=== PATIENT | female | born 1955 | race Caucasian/White ===

== ENCOUNTER → 2017-03-12 | Outpatient (CLI) | payer BC ==
[~2017-03-12] MED LIST: AMOXICILLIN 50500 MG PO; AMOXICILLIN 8751 TAB PO; ANTIVERT 25MG25 MG PO; ATIVAN 0.50.5 MG/TAB PO; CALCITRIOL PO; CALCIUM CARBONATE PO; CARVEDILOL; CELLCEPT 5500 MG/TAB PO; EPA FISH OIL1000 MG PO; FLONASE NASAL S16 GM NS; LEVOTHROID0.075 MG PO; NEPROVITE PO; NIACIN; NORCO 325 MG-51 TAB PO; NORVASC5 MG PO; PHENERGAN 25 TA25 MG PO; PROGRAF 1MG1 MG; SYNTHROID0.075 MG/T PO; TAMIFLU 75MG75 MG PO; TUSS PO; TYLENOL 325MG325 MG PO; VANCOCIN H250 MG/CAP PO; VENTOLIN0.09 MG IH; VIT B COMPLEX; VITAMIN D; ZITHROMAX 250M250 MG PO; ZOFRAN 4MG T4 MG/TAB PO; [UNRECOGNIZED DRUG - OTHER]
== END ==
LOC: MC.RAD 03-11 15:00
DX: Z12.31 Encounter for screening mammogram for malignant neoplasm of breast (principal)

== ENCOUNTER 2017-11-27 16:35 | Emergency (ER) | payer BC, OTHER ==
[~2017-11-27] VITALS: Ht 165.1 cm; Wt 64.5 kg
[~2017-11-27 16:35] MED LIST changes: +FOSAMAX 70MG TA70 MG PO; +VALIUM 2MG T2 MG/TAB PO
[2017-11-27 16:42] VITALS: TEMP 97.7
[2017-11-27 17:22] LABS: BASO % 0.3 % (0.0-2.0); EOS # 0.1 (0.0-0.7); EOS % 0.7 % (0-4.0); GRAN # 4.7 (1.4-6.5); GRAN % 67.9 % (42.2-75.2); HEMATOCRIT 37.9 % (37.0-47.0); HEMOGLOBIN 12.9 g/dl (12.5-16.0); LYMPH # 1.4 (1.2-3.4); LYMPH % 20.3 % (20.0-51.0); MEAN CELL VOLUME 85 fl (80.0-100.0); MEAN CORPUSCULAR HEMOGLOBIN 29 pg (27.0-31.0); MEAN CORPUSCULAR HGB CONC 34 g/dl (33.0-37.0); MEAN PLATELET VOLUME 9.8 fl (7.4-10.4); MONO # 0.8 (0.1-0.6); MONO % 10.7 % (1.7-9.3); PLATELET COUNT 238 K/mm3 (130-400); RED BLOOD COUNT 4.45 M/mm3 (4.10-5.30); REDCELL DISTRIBUTION WIDTH-CV 12.9 % (11.5-14.5)
[2017-11-27 17:37] LABS: ALANINE AMINOTRANSFERASE 51 U/L (9-52); ALBUMIN 4.2 gm/dL (3.5-5.0); ALKALINE PHOSPHATASE 53 U/L (50-136); ANION GAP 14 mmol/L (7-16); AST,SGOT 44 U/L (15-37); BILIRUBIN,TOTAL 0.5 mg/dL (0.0-1.0); BLOOD UREA NITROGEN 11 mg/dL (7-17); CALCIUM 9.9 mg/dL (8.4-10.2); CARBON DIOXIDE 21 mmol/L (22-30); CHLORIDE 94 mmol/L (98-107); CREATININE, serum 0.94 mg/dL (0.52-1.25); GLUCOSE 112 mg/dL (74-106); LIPASE 479 U/L (23-300); POTASSIUM 4.1 mmol/L (3.4-5.0); SODIUM 128 mmol/L (137-145); TOTAL PROTEIN 6.7 gm/dL (6.4-8.2)
[2017-11-27 17:39] LABS: C-REACTIVE PROTEIN < 0.5 mg/dL (0.0-0.9)
[2017-11-27 19:17] LABS: COLLECTION METHOD CLEAN CATCH
[2017-11-27 19:24] LABS: PH 5 (5-8); SQUAMOUS EPITHELIAL None Seen /hpf; URINE APPEARANCE Clear; URINE BACTERIA None Seen /hpf; URINE BILIRUBIN Negative (NEGATIVE); URINE BLOOD Negative (NEGATIVE); URINE COLOR Yellow; URINE GLUCOSE Negative (NEGATIVE); URINE KETONE 1+ (NEGATIVE); URINE LEUKOCYTE ESTERASE Negative (NEGATIVE); URINE NITRATE Negative (NEGATIVE); URINE PROTEIN(semi-quant) Negative (NEGATIVE); URINE RBC 0-2 /hpf; URINE UROBILINOGEN Negative (NEGATIVE)
[2017-11-27 19:45] VITALS: BP 121/73; PULSE 83
== END 2017-11-27 20:32 | disposition short-term general hospital (02) ==
LOC: COL.ER 16:35
PROVIDERS: Family Medicine
DX: K85.90 Acute pancreatitis without necrosis or infection, unspecified (principal); E86.0 Dehydration; E87.1 Hypo-osmolality and hyponatremia
CPT/HCPCS: J2405; J3010; J7030; J7120; Q9967

== ENCOUNTER 2017-12-24 11:24 | Day surgery (SDC) | payer BC ==
[~2017-12-24] VITALS: Ht 165.1 cm; Wt 62.1 kg
[2017-12-24 11:43] VITALS: BP 113/77; PULSE 67; TEMP 97.9
[2017-12-24 13:55] VITALS: BP 111/75; PULSE 76; TEMP 97.9
[2017-12-24 14:10] VITALS: BP 110/77; PULSE 56
[2017-12-24 14:25] VITALS: BP 111/73; PULSE 57
[2017-12-24 14:40] VITALS: BP 114/71; PULSE 56
[2017-12-24 15:10] VITALS: BP 112/68; PULSE 58
== END 2017-12-24 16:10 | disposition home or self-care (01) ==
LOC: SDCO 11:24
DX: Z12.11 Encounter for screening for malignant neoplasm of colon (principal); K55.20 Angiodysplasia of colon without hemorrhage; K57.30 Diverticulosis of large intestine without perforation or abscess without bleeding; K64.0 First degree hemorrhoids; Q61.3 Polycystic kidney, unspecified; E03.9 Hypothyroidism, unspecified; Z88.8 Allergy status to other drugs, medicaments and biological substances; Z94.0 Kidney transplant status
CPT/HCPCS: OP; J2250; J3010; J7030

== ENCOUNTER 2018-01-07 11:04 | Day surgery (SDC) | payer BC ==
[~2018-01-07] VITALS: Ht 165.1 cm; Wt 60.5 kg
[2018-01-07] VITALS (9 sets, daily range): BP systolic 107–126; BP diastolic 64–77; PULSE 49–59; TEMP 97–98.1
[2018-01-07] MEDS ORDERED: NORCO 325 MG-51 TAB PO (15:22)
== END 2018-01-07 17:45 | disposition home or self-care (01) ==
LOC: SDCO 11:04
DX: K81.1 Chronic cholecystitis (principal); Z79.899 Other long term (current) drug therapy; I12.9 Hypertensive chronic kidney disease with stage 1 through stage 4 chronic kidney disease, or unspecified chronic kidney disease; N18.9 Chronic kidney disease, unspecified; K21.9 Gastro-esophageal reflux disease without esophagitis; E03.9 Hypothyroidism, unspecified; Z94.0 Kidney transplant status; Q61.3 Polycystic kidney, unspecified
CPT/HCPCS: J0690; J1100; J1200; J2270; J2405; J2704; J2710; J3010; J7120

== ENCOUNTER → 2018-06-10 | Outpatient (CLI) | payer BC | LOC: MC.RAD 14:47 | DX: Z12.31 Encounter for screening mammogram for malignant neoplasm of breast (principal) ==

== ENCOUNTER 2018-08-05 10:23 | Day surgery (SDC) | payer BC ==
[2018-08-05] VITALS (7 sets, daily range): BP systolic 102–127; BP diastolic 63–82; PULSE 62–75; TEMP 97.3
[~2018-08-05] VITALS: Ht 166.4 cm; Wt 63.3 kg
[2018-08-05] MEDS ORDERED: NORCO 325 MG-51 TAB PO (13:55)
== END 2018-08-05 16:50 | disposition home or self-care (01) ==
LOC: SDCO 10:23
DX: K43.2 Incisional hernia without obstruction or gangrene (principal); I12.9 Hypertensive chronic kidney disease with stage 1 through stage 4 chronic kidney disease, or unspecified chronic kidney disease; N18.9 Chronic kidney disease, unspecified; D63.1 Anemia in chronic kidney disease; J44.9 Chronic obstructive pulmonary disease, unspecified; K21.9 Gastro-esophageal reflux disease without esophagitis; E03.9 Hypothyroidism, unspecified; Q61.3 Polycystic kidney, unspecified; M81.0 Age-related osteoporosis without current pathological fracture; Z90.49 Acquired absence of other specified parts of digestive tract; Z94.0 Kidney transplant status; Z80.0 Family history of malignant neoplasm of digestive organs; Z82.49 Family history of ischemic heart disease and other diseases of the circulatory system; Z88.6 Allergy status to analgesic agent; Z88.8 Allergy status to other drugs, medicaments and biological substances
CPT/HCPCS: C1781; J2250; J2405; J2704; J3010; J7120

== ENCOUNTER 2023-09-17 14:43 | Outpatient (CLI) | payer MEDICARE, OTHER ==
[~2023-09-17] VITALS: Ht 166.4 cm; Wt 63.5 kg
[~2023-09-17 14:43] MED LIST changes: +EUTHYROX75 MCG PO; -LEVOTHROID0.075 MG PO
[2023-09-17 14:56] VITALS: BP 118/78; PULSE 85; TEMP 98.1
== END 2023-09-17 15:06 | disposition home or self-care (01) ==
LOC: EUO 14:43
DX: M81.0 Age-related osteoporosis without current pathological fracture (principal)
CPT/HCPCS: J0897

== ENCOUNTER → 2023-09-27 | Outpatient (CLI) | payer MEDICARE, OTHER | LOC: MC.RAD 13:55 | DX: N63.10 Unspecified lump in the right breast, unspecified quadrant (principal) ==